=== PATIENT | female | born 1945 | race Caucasian/White ===

== ENCOUNTER 2019-12-05 17:22 | Observation (INO) ==
[2019-12-05] MEDS ORDERED: Isovue-370 500 ML BOTTLE IVP ONE (17:40)
[2019-12-05] MEDS ORDERED: 0.9 % Sodium Chloride 1,000 ML IVC STA (17:55)
[2019-12-05 17:58] LABS: Basophils # 0.1 K/mcL (0.0-0.2); Basophils % 0.6 %; Eosinophils # 0.1 K/mcL (0.0-0.6); Eosinophils % 0.5 %; Hematocrit 41.1 % (35.3-44.9); Hemoglobin 12.6 g/dL (11.5-15.4); Immature Granulocytes % 0.2 % (0-4); Lymphocytes # 2.6 K/mcL (0.6-4.6); Mean Corpuscular HGB Conc 30.7 g/dL (31.6-35.5); Mean Corpuscular Hemoglobin 27.8 pg (28.0-33.3); Mean Corpuscular Volume 90.5 fL (83.0-100.0); Mean Platelet Volume 10.5 fL (9.4-12.4); Monocytes # 1.6 K/mcL (0.0-1.3); Monocytes % 10.9 %; Neutrophils # 10.1 K/mcL (1.6-8.9); Platelet Count 542 K/mcL (140-400); Red Blood Count 4.54 M/mcL (3.82-4.97); Red Cell Distribution Width 14.1 % (11.5-14.5); Segmented Neutrophils % 69.8 %; White Blood Count 14.4 K/mcL (4.3-11.1)
[2019-12-05 18:01] LABS: Bilirubin,Urine Negative (Negative); Blood,Urine Negative (Negative); Clarity,Urine Clear (Clear); Color,Urine Light-Yellow (Yellow); Glucose,Urine (UA) Normal (Normal); Ketones,Urine 10 mg/dL (Negative); Leukocyte Esterase,Urine Negative (Negative); Nitrite,Urine Negative (Negative); PH,Urine 6.5 pH Units (5.0-8.0); Protein,Urine Negative (Neg-Trace); Specific Gravity,Urine 1.011 (1.010-1.025); Urobilinogen,Urine Normal (Normal)
[2019-12-05] MEDS ORDERED: Ondansetron 4 MG/2 ML VIAL IVP STA (18:03)
[2019-12-05 18:25] LABS: Alanine Aminotransferase 20 Units/L (7-52); Albumin 3.6 g/dL (3.5-5.7); Albumin/Globulin Ratio 0.9 (1.1-2.2); Alkaline Phosphatase 106 Units/L (34-104); Aspartate Amino Transferase 31 Units/L (13-39); BUN/Creatinine Ratio 13 (6-26); Bilirubin,Indirect 0.3 mg/dL (0.0-1.0); Bilirubin,Total 0.3 mg/dL (0.3-1.0); Blood Urea Nitrogen 8 mg/dL (8-23); Calcium 9.5 mg/dL (8.6-10.3); Carbon Dioxide 21 mEq/L (23-29); Chloride 98 mEq/L (98-107); Globulin 3.8 g/dL (2.4-3.5); Glucose 128 mg/dL (70-105); Lipase 19 Units/L (11-82); Osmolality,Calculated 280 (280-300); Potassium 3.5 mEq/L (3.5-5.1); Sodium 135 mEq/L (136-145); Total Protein 7.4 g/dL (6.4-8.9); Troponin I < 0.03 ng/mL (< 0.04); eGFR For African Americans > 60 (> 60); eGFR For Non-African Americans > 60 (> 60)
[2019-12-05] MEDS ORDERED: Naloxone 0.4 MG/ML INJ IVP PRN (20:34)
[2019-12-05] MEDS: 0.9 % Sodium Chloride 1,000 ML IVC SCH (21:23)
[2019-12-05] MEDS: Ondansetron 4 MG/2 ML VIAL IVP PRN (21:23)
[2019-12-05] MEDS: *HR* LORazepam 1 MG TABLET PO PRN (21:41)
[2019-12-06 03:55] LABS: Hematocrit 34.9 % (35.3-44.9); Mean Corpuscular HGB Conc 30.7 g/dL (31.6-35.5); Mean Corpuscular Hemoglobin 27.7 pg (28.0-33.3); Mean Corpuscular Volume 90.4 fL (83.0-100.0); Mean Platelet Volume 10.8 fL (9.4-12.4); Platelet Count 433 K/mcL (140-400); Red Blood Count 3.86 M/mcL (3.82-4.97); Red Cell Distribution Width 14.4 % (11.5-14.5); White Blood Count 10.2 K/mcL (4.3-11.1)
[2019-12-06 04:03] LABS: BUN/Creatinine Ratio 12 (6-26); Blood Urea Nitrogen 6 mg/dL (8-23); Calcium 8.6 mg/dL (8.6-10.3); Carbon Dioxide 27 mEq/L (23-29); Chloride 104 mEq/L (98-107); Glucose 104 mg/dL (70-105); Magnesium 1.7 mg/dL (1.6-2.6); Osmolality,Calculated 284 (280-300); Phosphorous 2.6 mg/dL (2.7-4.5); Potassium 3.6 mEq/L (3.5-5.1); Sodium 138 mEq/L (136-145); eGFR For African Americans > 60 (> 60); eGFR For Non-African Americans > 60 (> 60)
[2019-12-06 04:16] LABS: Hemoglobin 10.7 g/dL (11.5-15.4)
[2019-12-06] MEDS: 0.9 % Sodium Chloride 1,000 ML IVC SCH (05:31)
[2019-12-06] MEDS ORDERED: Ketorolac 15 MG/ML VIAL IVP ONE (05:38)
[2019-12-06] MEDS: Ondansetron 4 MG/2 ML VIAL IVP PRN (08:45)
[2019-12-06] MEDS ORDERED: NON-FORMULARY MEDICATION 1 EACH EACH (Omeprazole 40 MG) PO SCH (09:00)
[2019-12-06] MEDS: Topiramate 25 MG TABLET PO SCH ×2 (09:32→21:09)
[2019-12-06] MEDS: Tolterodine LA (24 HR) 4 MG CAP.ER.24H PO SCH (09:32)
[2019-12-06] MEDS: Loratadine/Pseudophed (12 HR) 1 EACH TABLET PO SCH (09:32)
[2019-12-06] MEDS: atenoloL 50 MG TABLET PO SCH (09:32)
[2019-12-06] MEDS: Aspirin Enteric Coated 81 MG Tablet PO SCH (09:32)
[2019-12-06] MEDS ORDERED: Lidocaine -MPF 2% 2 ML VIAL ONE ×2 (10:20→11:38)
[2019-12-06] MEDS ORDERED: *HR* Propofol 200 MG/20 ML VIAL IVP ONE ×2 (10:20→10:22)
[2019-12-06] MEDS ORDERED: *HR* Metoprolol 5 MG/5 ML VIAL IVP ONE (10:54)
[2019-12-06] MEDS ORDERED: Ondansetron 4 MG/2 ML VIAL IVP ONE (14:27)
[2019-12-06] MEDS ORDERED: Acetaminophen IV 1,000 MG/100 ML INFUS..BTL IVPB STA (16:08)
[2019-12-06 17:16] LABS: Bilirubin,Urine Negative (Negative); Blood,Urine Negative (Negative); Clarity,Urine Turbid (Clear); Color,Urine Light-Yellow (Yellow); Glucose,Urine (UA) Normal (Normal); Hyaline Casts,Urine Few per lpf (None Seen); Ketones,Urine 40 mg/dL (Negative); Leukocyte Esterase,Urine Moderate (Negative); Mucus,Urine Few per lpf (None-Few); Nitrite,Urine Negative (Negative); Protein,Urine Trace mg/dL (Neg-Trace); Specific Gravity,Urine 1.017 (1.010-1.025); Squamous Epithelial Cell,Urine Moderate per hpf (None-Few); Transitional Epi Cells,Urine Moderate per hpf (None-Few); Urobilinogen,Urine Normal (Normal); WBC,Urine 30-50 per hpf (0-3)
[2019-12-06] MEDS: *HR* LORazepam 1 MG TABLET PO PRN (21:09)
[2019-12-06] MEDS: Pantoprazole 40 MG VIAL IVP SCH (21:09)
[2019-12-07] MEDS: Pantoprazole 40 MG VIAL IVP SCH (06:22)
[2019-12-07 07:07] VITALS: BP 112/70
[2019-12-07] MEDS: Aspirin Enteric Coated 81 MG Tablet PO SCH (07:30)
[2019-12-07] MEDS: atenoloL 50 MG TABLET PO SCH (07:30)
[2019-12-07] MEDS: Topiramate 25 MG TABLET PO SCH (07:30)
[2019-12-07] MEDS: Loratadine/Pseudophed (12 HR) 1 EACH TABLET PO SCH (07:30)
[2019-12-07] MEDS: Ondansetron 4 MG/2 ML VIAL IVP PRN (07:30)
[2019-12-07] MEDS: Tolterodine LA (24 HR) 4 MG CAP.ER.24H PO SCH (07:31)
== END 2019-12-07 10:50 | disposition home or self-care (01) ==
LOC: EMEROOARM 17:22 → 3BNU 17:22 → SUATTDRO 20:45 → 3BNU 21:03
PROVIDERS: ADMIT Family Medicine; ATTEND Internal Medicine

== ENCOUNTER 2021-03-21 19:22 | Inpatient (IN) ==
[2021-03-21] MEDS ORDERED: Ondansetron 4 MG/2 ML VIAL IVP ONE (19:58)
[2021-03-21] MEDS: 0.9 % Sodium Chloride 1,000 ML IVC SCH (20:41)
[2021-03-21 20:55] LABS: Basophils # 0.1 K/mcL (0.0-0.2); Basophils % 0.3 %; Hematocrit 40.7 % (35.3-44.9); Hemoglobin 13.1 g/dL (11.5-15.4); Immature Granulocytes % 0.5 % (0-4); Lymphocytes # 0.6 K/mcL (0.6-4.6); Lymphocytes % 2.9 %; Mean Corpuscular HGB Conc 32.2 g/dL (31.6-35.5); Mean Corpuscular Hemoglobin 28.4 pg (28.0-33.3); Mean Corpuscular Volume 88.1 fL (83.0-100.0); Mean Platelet Volume 10.4 fL (9.4-12.4); Monocytes # 1.6 K/mcL (0.0-1.3); Monocytes % 8.3 %; Neutrophils # 16.8 K/mcL (1.6-8.9); Platelet Count 361 K/mcL (140-400); Red Blood Count 4.62 M/mcL (3.82-4.97); Red Cell Distribution Width 13.9 % (11.5-14.5)
[2021-03-21 21:17] LABS: Alanine Aminotransferase 27 Units/L (7-52); Albumin 3.8 g/dL (3.5-5.7); Albumin/Globulin Ratio 1.2 (1.1-2.2); Alkaline Phosphatase 81 Units/L (34-104); Aspartate Amino Transferase 30 Units/L (13-39); BUN/Creatinine Ratio 37 (6-26); Bilirubin,Indirect 0.4 mg/dL (0.0-1.0); Bilirubin,Total 0.4 mg/dL (0.3-1.0); Blood Urea Nitrogen 24 mg/dL (8-23); Calcium 9.5 mg/dL (8.6-10.3); Carbon Dioxide 27 mEq/L (23-29); Chloride 98 mEq/L (98-107); Globulin 3.3 g/dL (2.4-3.5); Glucose 152 mg/dL (70-105); Lipase 46 Units/L (11-82); Osmolality,Calculated 285 (280-300); Potassium 3.9 mEq/L (3.5-5.1); Sodium 134 mEq/L (136-145); Total Protein 7.1 g/dL (6.4-8.9); Troponin I < 0.03 ng/mL (< 0.04); eGFR For African Americans > 60 (> 60); eGFR For Non-African Americans > 60 (> 60)
[2021-03-21] MEDS ORDERED: 0.9 % Sodium Chloride 1,000 ML IVC ONE (21:50)
[2021-03-21] MEDS ORDERED: *HR* FentaNYL (PF) 100 MCG/2 ML VIAL IVP ONE (21:50)
[2021-03-21 22:51] LABS: Amorphous Sediment,Urine Few per hpf (None-Few); Bilirubin,Urine Negative (Negative); Blood,Urine Negative (Negative); Clarity,Urine Clear (Clear); Color,Urine Light-Yellow (Yellow); Glucose,Urine (UA) Normal (Normal); Ketones,Urine Trace mg/dL (Negative); Leukocyte Esterase,Urine Small (Negative); Mucus,Urine Few per lpf (None-Few); Nitrite,Urine Negative (Negative); Protein,Urine Trace mg/dL (Neg-Trace); Specific Gravity,Urine 1.019 (1.010-1.025); Squamous Epithelial Cell,Urine Few per hpf (None-Few); Urobilinogen,Urine Normal (Normal); WBC,Urine 15-30 per hpf (0-3)
[2021-03-21] MEDS ORDERED: *HR* HYDROmorphone (PF) 1 MG/ML SYRINGE IVP ONE (23:11)
[2021-03-21] MEDS ORDERED: *HR* LORazepam 2 MG/ML VIAL IVP ONE (23:11)
[2021-03-22] MEDS ORDERED: *HR* Heparin 5,000 UNIT/ML VIAL IVP PRN ×2 (00:12)
[2021-03-22] MEDS ORDERED: *HR* Heparin 5,000 UNIT/ML VIAL IVP ONE (00:12)
[2021-03-22] MEDS ORDERED: Heparin 25,000UNIT/250ML 1/2NS 25,000 UNIT/250 ML IV.SOLN IVC SCH (00:15)
[2021-03-22] MEDS ORDERED: MetroNIDAZOLE 500 MG/100 ML 500 MG/100 ML BAG IVPB ONE (00:42)
[2021-03-22] MEDS ORDERED: Aspirin 325 MG TABLET PO ONE (00:58)
[2021-03-22] MEDS ORDERED: *HR* HYDROcodone/Acet 5/325 mg TABLET PO PRN (01:47)
[2021-03-22] MEDS ORDERED: *HR* Promethazine 25 MG/ML VIAL IM PRN (01:47)
[2021-03-22] MEDS ORDERED: Acetaminophen 325 MG TABLET PO PRN (01:47)
[2021-03-22] MEDS ORDERED: Naloxone 0.4 MG/ML INJ IVP PRN (01:47)
[2021-03-22] MEDS ORDERED: Perflutren Lipid Microsphere 1.3 ML in 0.9 % Sodium Chloride 8.7 ML IVP PRN (01:56)
[2021-03-22] MEDS ORDERED: D5% in Water 1,000 ML IVC PRN (02:43)
[2021-03-22] MEDS ORDERED: *HR* Dextrose 50 % in Water (Syg) 50 ML SYRINGE IVP PRN (02:43)
[2021-03-22] MEDS ORDERED: Dextrose Gel 15 GM/37.5 ML TUBE PO PRN ×2 (02:43)
[2021-03-22] MEDS ORDERED: Saliva Stimulant 44.3ml BOTTLE PO PRN (02:57)
[2021-03-22 03:06] LABS: Basophils # 0.1 K/mcL (0.0-0.2); Basophils % 0.3 %; Hematocrit 37.6 % (35.3-44.9); Hemoglobin 11.9 g/dL (11.5-15.4); Immature Granulocytes % 0.4 % (0-4); Lymphocytes % 5.5 %; Mean Corpuscular HGB Conc 31.6 g/dL (31.6-35.5); Mean Corpuscular Hemoglobin 27.9 pg (28.0-33.3); Mean Corpuscular Volume 88.3 fL (83.0-100.0); Mean Platelet Volume 11.2 fL (9.4-12.4); Monocytes # 0.9 K/mcL (0.0-1.3); Monocytes % 4.7 %; Neutrophils # 16.9 K/mcL (1.6-8.9); Platelet Count 328 K/mcL (140-400); Red Blood Count 4.26 M/mcL (3.82-4.97); Red Cell Distribution Width 14.1 % (11.5-14.5); Segmented Neutrophils % 89.1 %; White Blood Count 18.9 K/mcL (4.3-11.1)
[2021-03-22 03:13] LABS: INR 1.3; Prothrombin Time 14.1 Seconds (9.4-12.1)
[2021-03-22 03:30] LABS: Alanine Aminotransferase 21 Units/L (7-52); Albumin 3.5 g/dL (3.5-5.7); Albumin/Globulin Ratio 1.2 (1.1-2.2); Alkaline Phosphatase 72 Units/L (34-104); Aspartate Amino Transferase 26 Units/L (13-39); BUN/Creatinine Ratio 32 (6-26); Bilirubin,Total 0.4 mg/dL (0.3-1.0); Blood Urea Nitrogen 18 mg/dL (8-23); Calcium 8.5 mg/dL (8.6-10.3); Carbon Dioxide 24 mEq/L (23-29); Chloride 105 mEq/L (98-107); Chol/HDL Ratio 2.3 (0-4.9); Cholesterol 123 mg/dL (< 200); Glucose 137 mg/dL (70-105); HDL Cholesterol 53 mg/dL (40-59); LDL Cholesterol,Calculated 61 mg/dL (< 100); Magnesium 1.8 mg/dL (1.6-2.6); Osmolality,Calculated 292 (280-300); Phosphorous 3.2 mg/dL (2.7-4.5); Potassium 4.1 mEq/L (3.5-5.1); Sodium 139 mEq/L (136-145); Total Protein 6.5 g/dL (6.4-8.9); Triglycerides 47 mg/dL (< 150); eGFR For African Americans > 60 (> 60); eGFR For Non-African Americans > 60 (> 60)
[2021-03-22 03:31] LABS: Troponin I 0.03 ng/mL (< 0.04)
[2021-03-22 03:36] LABS: C-Reactive Protein 34 mg/L (Less than 10)
[2021-03-22 03:40] LABS: Thyroid Stimulating Hormone 1.707 mcIU/mL (0.340-5.600)
[2021-03-22 04:15] LABS: Estimated Average Glucose 117 mg/dl; Hemoglobin A1C 5.7 %
[2021-03-22] MEDS: 0.9 % Sodium Chloride 1,000 ML IVC SCH ×2 (06:53→20:32)
[2021-03-22] MEDS ORDERED: 0.9 % Sodium Chloride 500 ML IVC ONE (07:26)
[2021-03-22] MEDS ORDERED: *HR* LORazepam 0.5 MG TABLET PO SCH (09:00)
[2021-03-22] MEDS ORDERED: Metoprolol XL (24 HR) Succ 25 MG TAB.ER.24H PO SCH (09:00)
[2021-03-22] MEDS: Ampicillin/Sulbactam 3,000 MG in 0.9 % Sodium Chloride Mini Bag 100 ML IVPB SCH ×4 (09:41→23:24)
[2021-03-22] MEDS: Metoprolol XL (24 HR) Succ 25 MG TAB.ER.24H PO SCH (09:42)
[2021-03-22] MEDS: Lactobacillus 1 EACH CAP.SPRINK PO SCH ×2 (09:43→20:32)
[2021-03-22] MEDS: Pantoprazole 40 MG VIAL IVP SCH (09:43)
[2021-03-22] MEDS ORDERED: Magnesium Oxide 400 MG TABLET PO ONE (10:41)
[2021-03-22] MEDS ORDERED: MetroNIDAZOLE 500 MG/100 ML 500 MG/100 ML BAG IVPB SCH (11:00)
[2021-03-22] MEDS ORDERED: *HR* LORazepam 1 MG TABLET PO PRN (13:17)
[2021-03-22] MEDS: PARoxetine 10 MG TABLET PO SCH (15:47)
[2021-03-22] MEDS: Tolterodine LA (24 HR) 4 MG CAP.ER.24H PO SCH (15:47)
[2021-03-22] MEDS: Aspirin Enteric Coated 81 MG Tablet PO SCH (15:47)
[2021-03-22 16:48] LABS: Influenza A PCR Negative (Negative); Influenza B PCR Negative (Negative); Resp. Syncytial Virus PCR Negative (Negative)
[2021-03-22 16:55] LABS: SARS-CoV-2 by PCR (In House) Negative (Negative)
[2021-03-22] MEDS: *HR* Heparin 5,000 UNIT/ML VIAL SQ SCH (17:23)
[2021-03-23 01:11] LABS: Basophils # 0.1 K/mcL (0.0-0.2); Eosinophils # 0.3 K/mcL (0.0-0.6); Eosinophils % 2.9 %; Hematocrit 29.8 % (35.3-44.9); Immature Granulocytes % 0.2 % (0-4); Lymphocytes # 2.6 K/mcL (0.6-4.6); Lymphocytes % 27.5 %; Mean Corpuscular HGB Conc 32.9 g/dL (31.6-35.5); Mean Corpuscular Hemoglobin 29.2 pg (28.0-33.3); Mean Corpuscular Volume 88.7 fL (83.0-100.0); Mean Platelet Volume 10.8 fL (9.4-12.4); Monocytes # 0.9 K/mcL (0.0-1.3); Monocytes % 9.6 %; Neutrophils # 5.5 K/mcL (1.6-8.9); Platelet Count 242 K/mcL (140-400); Red Blood Count 3.36 M/mcL (3.82-4.97); Red Cell Distribution Width 14.3 % (11.5-14.5); Segmented Neutrophils % 58.8 %
[2021-03-23 01:14] LABS: Hemoglobin 9.8 g/dL (11.5-15.4); White Blood Count 9.3 K/mcL (4.3-11.1)
[2021-03-23 01:29] LABS: BUN/Creatinine Ratio 20 (6-26); Blood Urea Nitrogen 10 mg/dL (8-23); Calcium 7.7 mg/dL (8.6-10.3); Carbon Dioxide 25 mEq/L (23-29); Chloride 108 mEq/L (98-107); Glucose 92 mg/dL (70-105); Magnesium 1.7 mg/dL (1.6-2.6); Osmolality,Calculated 285 (280-300); Phosphorous 1.4 mg/dL (2.7-4.5); Potassium 3.7 mEq/L (3.5-5.1); Sodium 138 mEq/L (136-145); eGFR For African Americans > 60 (> 60); eGFR For Non-African Americans > 60 (> 60)
[2021-03-23] MEDS: 0.9 % Sodium Chloride 1,000 ML IVC SCH ×2 (05:30→05:52)
[2021-03-23] MEDS: Ampicillin/Sulbactam 3,000 MG in 0.9 % Sodium Chloride Mini Bag 100 ML IVPB SCH ×2 (05:30→11:30)
[2021-03-23] MEDS: *HR* Heparin 5,000 UNIT/ML VIAL SQ SCH ×2 (05:30→19:15)
[2021-03-23] MEDS ORDERED: Potassium Phosphate 44 MEQ in 0.9 % Sodium Chloride 250 ML IVPB ONE (06:54)
[2021-03-23] MEDS: PARoxetine 10 MG TABLET PO SCH (11:29)
[2021-03-23] MEDS: Aspirin Enteric Coated 81 MG Tablet PO SCH (11:29)
[2021-03-23] MEDS: Tolterodine LA (24 HR) 4 MG CAP.ER.24H PO SCH (11:29)
[2021-03-23] MEDS: Metoprolol XL (24 HR) Succ 25 MG TAB.ER.24H PO SCH (11:30)
[2021-03-23] MEDS: Lactobacillus 1 EACH CAP.SPRINK PO SCH (11:30)
[2021-03-23] MEDS: Pantoprazole 40 MG VIAL IVP SCH (11:31)
[2021-03-23 15:33] VITALS: BP 129/69; PULSE 90; TEMP 98.2; O2SAT 95
[2021-03-23] MEDS ORDERED: FLU Vac QV 21-22 (6Month+)/PF 0.5 ML SYRINGE IM ONE (19:00)
== END 2021-03-23 20:00 | disposition home or self-care (01) | DRG 872 ==
LOC: 3ANU 19:22 → EMEROOARM 19:22 → SUATTDRO 03-22 00:48 → OBSVTOIN 03-22 00:48 → 3ANU 03-22 01:27
PROVIDERS: ADMIT Internal Medicine; ATTEND Internal Medicine